=== PATIENT | female | born 1995 | race Caucasian/White ===

== ENCOUNTER 2016-08-14 18:41 | Emergency (ER) | payer OTHER ==
[2016-08-14] MEDS ORDERED: KETOROLAC 60 MG/2 ML VIAL IM STA (21:08)
[2016-08-14] MEDS ORDERED: HYDROcod/ACET 5/325 Prepack 6 PO ONE ×2 (21:08→21:10)
[2016-08-14] MEDS ORDERED: KETOROLAC 60 MG/2 ML VIAL ONE (21:10)
== END 2016-08-14 21:31 | disposition home or self-care (01) ==
DX: N12 Tubulo-interstitial nephritis, not specified as acute or chronic (principal)

== ENCOUNTER 2016-12-19 19:48 | Emergency (ER) | payer OTHER ==
[2016-12-19 20:13] LABS: BILIRUBIN,URINE NEGATIVE (NEGATIVE)
[2016-12-19 20:15] LABS: HCG UR QUAL NEGATIVE; UA w/ MICROSCOPIC CHARGE YES
[2016-12-19 20:27] LABS: UR CULTURE IF IND NOT INDICATED
--- NOTE | 2016-12-19 20:27 | ED Physician Documentation ---
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 She started to feel more dizzy and was hyperventilating and her left arm was tingling. She went down to the ground but did not fully syncopized. There is no injury. No associated chest pain or trouble breathing. No recent travel, leg pain or pedal edema. She does take control. Review of Systems Constitutional: denies: Fever, Chills Nose: denies: Rhinorrhea / runny nose, Congestion Throat: denies: Dental pain / toothache, Sore throat Cardiac: denies: Chest pain / pressure, Palpitations Respiratory: denies: Dyspnea, Cough PD PAST MEDICAL HISTORY - Past Medical History Past Medical History: Yes : Other Other Past Medical History: pyelonephritis - Past Surgical History Past Surgical History: Yes - Present Medications Home Medications: Ambulatory Orders Medication Instructions Recorded Confirmed Norethindrone AC-Eth Estradiol 1 tab PO DAILY 08/14/16 12/19/16 [Loestrin 21 1-20 Tablet] Nitrofurantoin Monohyd/M-Cryst 1 tab PO BID 5 Days 12/19/16 [Macrobid 100 mg Capsule] - Allergies Allergies/Adverse Reactions: Allergies Allergy/AdvReac Type Severity Reaction Status Date / Time No Known Drug Allergies Allergy Verified 12/19/16 19:54 - Social History Does the pt smoke?: No Smoking Status: Never smoker Does the pt drink ETOH?: No Does the pt have substance abuse?: No - Immunizations Immunizations are current?: Yes - POLST Patient has POLST: No PD ED PE NORMAL - Vitals Vital signs reviewed: Yes - General General: Alert and oriented X 3, No acute distress - HEENT HEENT: PERRL, EOMI - Neck Neck: Supple, no meningeal sign, No bony TTP - Cardiac Cardiac: RRR, No murmur - Respiratory Respiratory: No respiratory distress, Clear bilaterally - Abdomen Abdomen: Non tender - Extremities Extremities: No edema, No calf tenderness / cord - Neuro Neuro: Alert and oriented X 3, Normal speech - Psych Psych: Normal mood, Normal affect Results - Vitals Vitals: Vital Signs - 24 hr 08/07/17 19:53 Temperature 36.1 C L Heart Rate 58 L Respiratory 16 Rate Blood Pressure 120/77 O2 Saturation 100 Oxygen O2 Source Room air - EKG (time done) 2036 Rate: Rate (enter#) (55) Rhythm: NSR [place]: Normal Intervals: Normal [place] QRS: Normal Ischemia: Normal ST segments Computer interpretation: Agree with computer - Labs Labs: Laboratory Tests 12/19/16 12/19/16 12/19/16 20:05 20:35 20:35 WBC 9.0 RBC 4.40 Hgb 13.3 Hct 39.2 MCV 89.2 MCH 30.3 MCHC 34.0 RDW 12.4 Plt Count 226 MPV 8.6 Neut # 4.2 Lymph # 3.8 H [place] # 0.6 Eos # 0.2 Baso # 0.1 Absolute Nucleated RBC 0.00 Nucleated RBCs 0.0 D-Dimer < 200.0 L Sodium Potassium Chloride Carbon Dioxide Anion Gap BUN Creatinine Estimated GFR (MDRD) Glucose Calcium Total Bilirubin AST ALT Alkaline Phosphatase Total Protein Albumin Globulin Albumin/Globulin Ratio Lipase Urine Color YELLOW Urine Clarity HAZY Urine pH 8.0 H Ur Specific [place] 1.010 Urine Protein NEGATIVE Urine Glucose (UA) NEGATIVE Urine Ketones NEGATIVE Urine Occult Blood NEGATIVE Urine Nitrite NEGATIVE Urine Bilirubin NEGATIVE Urine Urobilinogen 0.2 (NORMAL) Ur Leukocyte Esterase TRACE H Urine RBC 0-5 Urine WBC 6-10 H Ur Epithelial Cells See Comments Below Ur Squamous Epith Cells MANY Squamous H Urine Bacteria Moderate H Ur Microscopic Review INDICATED Urine Culture Comments NOT INDICATED Urine HCG, Qual NEGATIVE 12/19/16 20:35 WBC RBC Hgb Hct MCV MCH MCHC RDW Plt Count MPV Neut # Lymph # [place] # Eos # Baso # Absolute Nucleated RBC Nucleated RBCs D-Dimer Sodium 138 Potassium 3.3 L Chloride 105 Carbon Dioxide 27 Anion Gap 6.0 BUN 11 Creatinine 0.8 Estimated GFR (MDRD) 91 Glucose 73 Calcium 8.5 Total Bilirubin 0.4 AST 29 ALT 30 Alkaline Phosphatase 43 Total Protein 6.7 Albumin 3.8 Globulin 2.9 Albumin/Globulin Ratio 1.3 Lipase 34 Urine Color Urine Clarity Urine pH Ur Specific [place] Urine Protein Urine Glucose (UA) Urine Ketones Urine Occult Blood Urine Nitrite Urine Bilirubin Urine Urobilinogen Ur Leukocyte Esterase Urine RBC Urine WBC Ur Epithelial Cells Ur Squamous Epith Cells Urine Bacteria Ur Microscopic Review Urine Culture Comments Urine HCG, Qual PD MEDICAL DECISION MAKING - ED course ED course: 21-year-old woman with presyncopal episode with some panicky symptoms. Feeling better now. She does have evidence of UTI, PE is considered given that she is on control but d-dimer is negative. EKG normal. Departure - Departure Disposition: Home, Self Care Clinical Impression: Pre-syncope Condition: Good Record reviewed to determine appropriate education?: Yes Instructions: ED Near Syncope Unkn Prescriptions: Nitrofurantoin Monohyd/M-Cryst [Macrobid 100 mg Capsule] 1 tab PO BID 5 Days Comments: Call your doctor to arrange a follow-up appointment, make the next available appointment. In the interim, return anytime if worse or if new symptoms develop.
[2016-12-19 20:51] LABS: BASOPHILS # (AUTO) 0.1 10^3/uL (0.0-0.1); BASOPHILS % (AUTO) 1.2 %; EOSINOPHILS # (AUTO) 0.2 10^3/uL (0.0-0.7); EOSINOPHILS % (AUTO) 1.7 %; HCT - HEMATOCRIT 39.2 % (37.0-47.0); HGB - HEMOGLOBIN 13.3 g/dL (12.0-16.0); LYMPHOCYTES # (AUTO) 3.8 10^3/uL (1.5-3.5); LYMPHOCYTES % (AUTO) 42.9 %; MEAN CORPUSCULAR HEMOGLOBIN 30.3 pg (27.0-31.0); MEAN CORPUSCULAR VOLUME 89.2 fL (81.0-99.0); MEAN PLATELET VOLUME 8.6 fL (7.9-10.8); MONOCYTES # (AUTO) 0.6 10^3/uL (0.0-1.0); MONOCYTES % (AUTO) 7.2 %; NEUTROPHILS # (AUTO) 4.2 10^3/uL (1.5-6.6); RED CELL DISTRIBUTION WIDTH 12.4 % (12.0-15.0)
[2016-12-19 21:01] LABS: ALBUMIN/GLOBULIN RATIO 1.3 (1.0-2.2); BILIRUBIN,TOTAL 0.4 mg/dL (0.2-1.0); CALCIUM 8.5 mg/dL (8.5-10.3); CREATININE 0.8 mg/dL (0.4-1.0); POTASSIUM 3.3 mmol/L (3.5-5.0); TOTAL PROTEIN 6.7 g/dL (6.7-8.2)
[2016-12-19] MEDS ORDERED: NITROFURANTOIN MACRO 100 MG CAPSULE PO STA (21:23)
[2016-12-19] MEDS ORDERED: NITROFURANTOIN MACRO 100 MG CAPSULE PO ONE (21:32)
[2016-12-19 21:36] VITALS: BP 128/84
== END 2016-12-19 21:42 | disposition home or self-care (01) ==
LOC: EDUNIT# → ED 19:48
DX: R55 Syncope and collapse (principal)
CPT/HCPCS: 36415; 80053; 81001; 81025; 83690; 85025; 85379; 93005; 99283; 99284; A9270; 81003; 87086

== ENCOUNTER 2017-03-29 20:12 | Emergency (ER) | payer OTHER ==
[2017-03-29 20:17] VITALS: BP 122/74
--- NOTE | 2017-03-29 22:50 | ED Physician Documentation ---
History of Present Illness - Stated complaint Stated Complaint: CONSTIPATION - Chief complaint Chief Complaint: Abd Pain - Additonal information Additional information: hx from pt 21 fmeale cosntipation for about 5 days feels bloated and crmaling and only passing small amt of stool tried stool softeners and fiber pills s relief no priro surgery no NV denies preg Review of Systems Constitutional: denies: Fever Cardiac: denies: Chest pain / pressure Respiratory: denies: Dyspnea GI: reports: Abdominal Pain, Constipation. denies: Nausea, Vomiting : denies: Now EGA (denies) PD PAST MEDICAL HISTORY - Past Medical History Past Medical History: No - Present Medications Home Medications: Ambulatory Orders Medication Instructions Recorded Confirmed Norethindrone AC-Eth Estradiol 1 tab PO DAILY 08/14/16 03/29/17 [Loestrin 21 1-20 Tablet] Peg 3350/Na Sulf,Bicarb,Cl/KCl 4,000 ml PO ONCE #1 bottle 03/29/17 [Golytely] - Allergies Allergies/Adverse Reactions: Allergies Allergy/AdvReac Type Severity Reaction Status Date / Time No Known Drug Allergies Allergy Verified 03/29/17 20:17 - Social History Does the pt smoke?: No Smoking Status: Never smoker PD ED PE NORMAL - Vitals Vital signs reviewed: Yes - Cardiac Cardiac: RRR - Respiratory Respiratory: No respiratory distress, Clear bilaterally - Abdomen Abdomen: Soft, Non tender - Rectal Rectal: Other (no mass, no impaction) Results - Vitals Vitals: Vital Signs - 24 hr 03/29/17 20:14 Temperature 36 C L Heart Rate 50 L Respiratory 20 Rate Blood Pressure 122/74 O2 Saturation 100 Oxygen O2 Source Room air Departure - Departure Disposition: 01 Home, Self Care Clinical Impression: Constipation Qualifiers: Constipation type: unspecified constipation type Qualified Code(s): K59.00 - Constipation, unspecified Condition: Good Instructions: ED Constipation Follow-Up: SWAPNIL Velez [Provider Group] (if you continue to have GI issues you may need a colonoscopy) Prescriptions: Peg 3350/Na Sulf,Bicarb,Cl/KCl [Golytely] 4,000 ml PO ONCE #1 bottle Comments: When you get home 1) use the enema as I explained 2) drink the bottle of magnesium citrate 3) if you have not started passing stool by the morning, go to the pharmacy and get the GoLytely and drink several large sips every 10 minutes until you are just pooping clear water 4) if that does not result in a BM or if you feels worse, come back to the ER Forms: Activity restrictions
[2017-03-29] MEDS ORDERED: MAGNESIUM CITRATE 296 ML BOTTLE ONE (22:56)
[2017-03-29] MEDS: MAGNESIUM CITRATE 296 ML BOTTLE PO STA (22:58)
== END 2017-03-29 23:00 | disposition home or self-care (01) ==
LOC: ED 20:12
DX: K59.00 Constipation, unspecified (principal)
CPT/HCPCS: 99283

== ENCOUNTER 2017-05-05 15:45 | Emergency (ER) | payer OTHER ==
[2017-05-05 15:50] VITALS: BP 126/79
--- NOTE | 2017-05-05 15:57 | ED Physician Documentation ---
PD HPI FEMALE - Stated complaint Stated Complaint: UTI - Chief complaint Chief Complaint: UTI - History obtained from History obtained from: Patient - History of Present Illness Timing - onset: Yesterday (into today) Timing - duration: Days (1-2) Timing - details: Gradual onset, Waxing and waning Associated symptoms: Pelvic pain (some cramping lower abd pain - feeling similar to UTIs she has had in the past.), Urinary frequency. No: Fever, Vaginal bleeding, Vaginal discharge, Genital sore/lesion, Hematuria Contributing factors: Sexually active. No: , IUD, Exposed to STD Similar symptoms before: Diagnosis (UTIs often in the past, with last one about 2 weeks ago treated with cranberry pills.) Review of Systems Constitutional: denies: Fever, Chills Nose: denies: Rhinorrhea / runny nose, Congestion Throat: denies: Sore throat : reports: Frequency. denies: Discharge Skin: denies: Rash PD PAST MEDICAL HISTORY - Past Medical History Past Medical History: Yes Endocrine/Autoimmune: None : Kidney stones, Other (frequent UTIs) - Past Surgical History Past Surgical History: Yes - Present Medications Home Medications: Ambulatory Orders Medication Instructions Recorded Confirmed Norethindrone AC-Eth Estradiol 1 tab PO DAILY 08/14/16 05/05/17 [Loestrin 21 1-20 Tablet] - Allergies Allergies/Adverse Reactions: Allergies Allergy/AdvReac Type Severity Reaction Status Date / Time No Known Drug Allergies Allergy Verified 05/05/17 15:50 - Social History Does the pt smoke?: No Smoking Status: Never smoker Does the pt drink ETOH?: No Does the pt have substance abuse?: No - Immunizations Immunizations are current?: Yes - POLST Patient has POLST: No PD ED PE NORMAL - Vitals Vital signs reviewed: Yes - General General: Alert and oriented X 3, No acute distress, Well developed/nourished - Abdomen Abdomen: Soft, Non tender - Female Female : Pt declined - Rectal Rectal: Deferred - Back Back: No CVA TTP - Derm Derm: Normal color, No rash Results - Vitals Vitals: Vital Signs - 24 hr 05/05/17 15:47 Temperature 36.3 C L Heart Rate 55 L Respiratory 18 Rate Blood Pressure 126/79 O2 Saturation 97 Oxygen O2 Source Room air - Labs Labs: Laboratory Tests 05/04/17 05/05/17 15:53 15:53 Urine Color YELLOW Urine Clarity CLEAR Urine pH 6.5 Ur Specific [place] 1.010 1.010 Urine Protein NEGATIVE Urine Glucose (UA) NEGATIVE Urine Ketones NEGATIVE Urine Occult Blood NEGATIVE Urine Nitrite NEGATIVE Urine Bilirubin NEGATIVE Urine Urobilinogen 0.2 (NORMAL) Ur Leukocyte Esterase NEGATIVE Ur Microscopic Review NOT INDICATED Urine Culture Comments NOT INDICATED Urine HCG, Qual NEGATIVE PD MEDICAL DECISION MAKING - ED course Complexity details: reviewed results, considered differential (urine is very normal. Consider some interstitial cystitis. Would also consider vaginitis as cause of symptoms and suggested pelvic exam and patient declined. ), d/w patient Departure - Departure Disposition: 01 Home, Self Care Clinical Impression: Dysuria Condition: Stable Record reviewed to determine appropriate education?: Yes Instructions: ED Dysuria Uncertain Cause Follow-Up: SWAPNIL Velez [Provider Group] Comments: Drink lots of fluids. Tylenol if needed for discomfort. Your urine test looks normal right now so no signs of bladder infection. This could be also from or instead from a vaginitis and can be evaluated with a pelvic exam. That can be done here or follow up with PCP if you have persistence of some discomfort or odor after next few days. Recheck if worsening symptoms. Discharge Date/Time: 05/05/17 16:28
[2017-05-05 16:05] LABS: BILIRUBIN,URINE NEGATIVE (NEGATIVE); PH,URINE 6.5 PH (5.0-7.5)
[2017-05-05 16:14] LABS: UA CHARGE (STRIP ONLY) YES; UR CULTURE IF IND NOT INDICATED
[2017-05-05 16:31] LABS: HCG UR QUAL NEGATIVE
== END 2017-05-05 16:28 | disposition home or self-care (01) ==
LOC: ED 15:45
DX: R30.0 Dysuria (principal); Z87.440 Personal history of urinary (tract) infections
CPT/HCPCS: 81001; 81003; 81025; 87086; 99282

== ENCOUNTER 2017-07-24 09:49 | Emergency (ER) | payer OTHER ==
[2017-07-24 10:17] LABS: BASOPHILS # (AUTO) 0.1 10^3/uL (0.0-0.1); BASOPHILS % (AUTO) 0.6 %; EOSINOPHILS # (AUTO) 1.6 10^3/uL (0.0-0.7); EOSINOPHILS % (AUTO) 12.1 %; HGB - HEMOGLOBIN 14.2 g/dL (12.0-16.0); LYMPHOCYTES # (AUTO) 2.5 10^3/uL (1.5-3.5); LYMPHOCYTES % (AUTO) 19.1 %; MEAN CORPUSCULAR HEMOGLOBIN 30.3 pg (27.0-31.0); MEAN CORPUSCULAR VOLUME 89.1 fL (81.0-99.0); MEAN PLATELET VOLUME 7.5 fL (7.9-10.8); MONOCYTES # (AUTO) 0.6 10^3/uL (0.0-1.0); MONOCYTES % (AUTO) 4.8 %; NEUTROPHILS # (AUTO) 8.4 10^3/uL (1.5-6.6); NEUTROPHILS % (AUTO) 63.4 %; PLT - PLATELET COUNT 288 10^3/uL (130-450); RED BLOOD COUNT 4.68 10^6/uL (4.20-5.40); RED CELL DISTRIBUTION WIDTH 14.1 % (12.0-15.0); WHITE BLOOD COUNT 13.2 x10^3/uL (4.8-10.8)
[2017-07-24 10:18] LABS: BILIRUBIN,URINE NEGATIVE (NEGATIVE); GLUCOSE, URINE (UA) NEGATIVE (NEGATIVE); KETONES,URINE (UA) NEGATIVE (NEGATIVE); LEUKOCYTE ESTERASE, URINE NEGATIVE (NEGATIVE); NITRITE,URINE NEGATIVE (NEGATIVE); OCCULT BLOOD,URINE NEGATIVE (NEGATIVE); PROTEIN,URINE NEGATIVE (NEGATIVE); UROBILINOGEN,URINE 0.2 (NORMAL) E.U./dL (NORMAL)
[2017-07-24 10:21] LABS: CLARITY,URINE CLEAR (CLEAR); HCG UR QUAL NEGATIVE
[2017-07-24 10:30] LABS: ALBUMIN 3.8 g/dL (3.2-5.5); ALBUMIN/GLOBULIN RATIO 1.3 (1.0-2.2); BILIRUBIN,TOTAL 0.4 mg/dL (0.2-1.0); CALCIUM 9.2 mg/dL (8.5-10.3); CREATININE 0.8 mg/dL (0.4-1.0); TOTAL PROTEIN 6.8 g/dL (6.7-8.2)
[2017-07-24 10:44] LABS: RBC MORPHOLOGY (MULTIPLE) 1+ ANISOCYTOSIS (NORMAL)
[2017-07-24] MEDS ORDERED: ONDANSETRON 4 MG/2 ML VIAL IVP STA (10:58)
[2017-07-24] MEDS ORDERED: KETOROLAC 60 MG/2 ML VIAL IVP STA (10:58)
[2017-07-24] MEDS ORDERED: SODIUM CHLORIDE 0.9% 1,000 ML IV ONE (10:58)
--- NOTE | 2017-07-24 10:58 | ED Physician Documentation ---
History of Present Illness - Stated complaint Stated Complaint: ABD PX - Chief complaint Chief Complaint: Abd Pain - Additonal information Additional information: hx from pt 21 female upper abd pain bloating nausea after eating for a week denies preg no fever no prior abd surgery Review of Systems Constitutional: denies: Fever Cardiac: denies: Chest pain / pressure Respiratory: denies: Dyspnea, Cough GI: reports: Abdominal Pain, Nausea, Vomiting : denies: Now EGA Musculoskeletal: denies: Back pain Endocrine: denies: Easy bruising / bleeding Immunocompromised: denies: Immunocompromised PD PAST MEDICAL HISTORY - Past Medical History Endocrine/Autoimmune: None : Kidney stones, Other - Past Surgical History Past Surgical History: Yes - Present Medications Home Medications: Ambulatory Orders Medication Instructions Recorded Confirmed Norethindrone AC-Eth Estradiol 1 tab PO DAILY 08/14/16 05/05/17 [Loestrin 21 1-20 Tablet] Ondansetron Odt [Zofran] 4 mg TL Q6H PRN #10 tablet 07/24/17 Sucralfate 1 gm PO ACHS #120 tablet 07/24/17 raNITIdine [Zantac] 150 mg PO BID #60 tablet 07/24/17 - Allergies Allergies/Adverse Reactions: Allergies Allergy/AdvReac Type Severity Reaction Status Date / Time No Known Drug Allergies Allergy Verified 05/05/17 15:50 - Social History Does the pt smoke?: No Smoking Status: Never smoker Does the pt drink ETOH?: No Does the pt have substance abuse?: No - Immunizations Immunizations are current?: Yes - POLST Patient has POLST: No PD ED PE NORMAL - Vitals Vital signs reviewed: Yes - General General: Alert and oriented X 3 - HEENT HEENT: PERRL - Neck Neck: Supple, no meningeal sign - Cardiac Cardiac: RRR - Respiratory Respiratory: No respiratory distress, Clear bilaterally - Abdomen Abdomen: Soft, Other (TTP epigastric region + murphys) - Derm Derm: Normal color - Neuro Neuro: Alert and oriented X 3 Results - Vitals Vitals: Vital Signs - 24 hr 07/24/17 07/24/17 09:57 12:19 Temperature 36.8 C Heart Rate 84 80 Respiratory 16 16 Rate Blood Pressure 142/77 H 133/79 H O2 Saturation 99 98 Oxygen O2 Source Room air - Labs Labs: Laboratory Tests 07/24/17 07/24/1707/24/18 10:00 10:12 10:12 WBC 13.2 H RBC 4.68 Hgb 14.2 Hct 41.7 MCV 89.1 MCH 30.3 MCHC 34.0 RDW 14.1 Plt Count 288 MPV 7.5 L Neut # 8.4 H Lymph # 2.5 [place] # 0.6 Eos # 1.6 H Baso # 0.1 Absolute Nucleated RBC 0.00 Nucleated RBC % 0.0 Manual Slide Review Indicated RBC Morph Micro Appear 1+ ANISOCYTOSIS Sodium 137 Potassium 4.1 Chloride 100 L Carbon Dioxide 28 Anion Gap 9.0 BUN 16 Creatinine 0.8 Estimated GFR (MDRD) 91 Glucose 87 Calcium 9.2 Total Bilirubin 0.4 AST 27 ALT 24 Alkaline Phosphatase 37 L Total Protein 6.8 Albumin 3.8 Globulin 3.0 Albumin/Globulin Ratio 1.3 Lipase 18 L Urine Color YELLOW Urine Clarity CLEAR Urine pH 7.0 Ur Specific [place] 1.010 Urine Protein NEGATIVE Urine Glucose (UA) NEGATIVE Urine Ketones NEGATIVE Urine Occult Blood NEGATIVE Urine Nitrite NEGATIVE Urine Bilirubin NEGATIVE Urine Urobilinogen 0.2 (NORMAL) Ur Leukocyte Esterase NEGATIVE Ur Microscopic Review NOT INDICATED Urine Culture Comments NOT INDICATED Urine HCG, Qual NEGATIVE - Rads (name of study) abd sono Radiology: See rad report (per rad read, neg RUQ sono - no gallstones wall thicening or pericholecystic fluid, nl ducts) Departure - Departure Disposition: 01 Home, Self Care Clinical Impression: Abdominal pain Qualifiers: Abdominal location: epigastric Qualified Code(s): R10.13 - Epigastric pain Condition: Good Instructions: Abdominal Pain Follow-Up: FELIX DONALDSON [Primary Care Provider] - Hammad Gallo MD [Provider Admit Priv/Credential] - Prescriptions: Ondansetron Odt [Zofran] 4 mg TL Q6H PRN #10 tablet PRN Reason: Nausea / Vomiting raNITIdine [Zantac] 150 mg PO BID #60 tablet Sucralfate 1 gm PO ACHS #120 tablet Comments: Your pain was suggestive of gallstones but surprisingly the ultrasound was fine Also your liver tests were fine It is possiblt to have gallbladder disease without stone - you may need to get a test called a HIDA scan for further gallbladder evaluation. or the pain could be due to something else such as gastritis or an ulcer. Given the reassuring work up in the ER, I think it is safe for you to go home for now with medications to ease the symptoms But I have referred you to our surgical clinic for further testing such as endoscopy (a scope of your stomac) and perhaps the HIDA scan. Avoid spicy and fatty foods. Return if significantly worse Forms: Activity restrictions
[2017-07-24 12:20] VITALS: BP 133/79
--- NOTE | 2017-07-24 12:28 | Ultrasound Report ---
LIMITED RIGHT UPPER QUADRANT ABDOMINAL ULTRASOUND: 07/24/2017 COMPARISON: None. INDICATION: Upper abdominal pain. Please evaluate gallbladder. TECHNIQUE: Sonographic evaluation of the right upper quadrant was performed. FINDINGS: The liver appears normal in size, contour and echogenicity. No masses. The gallbladder is contracted, but appears otherwise normal without gallstones, wall thickening or pericholecystic fluid. The common duct is nondilated. Liver is 16.5 cm. Common duct is 3 mm. The right kidney is grossly unremarkable. The pancreas is not well visualized. IMPRESSION: ESSENTIALLY NEGATIVE RIGHT UPPER QUADRANT ULTRASOUND. TD: 07/24/2017 12:27 MTDVictorina
== END 2017-07-24 14:19 | disposition home or self-care (01) ==
LOC: ED 09:49
DX: R10.13 Epigastric pain (principal)
CPT/HCPCS: 36415; 76705; 80053; 81001; 81003; 81025; 83690; 85025; 87086; 96361; 96374; 96375; 99283

== ENCOUNTER 2017-12-25 19:46 | Emergency (ER) | payer OTHER ==
[2017-12-25 20:12] LABS: BASOPHILS # (AUTO) 0.1 10^3/uL (0.0-0.1); BASOPHILS % (AUTO) 0.8 %; EOSINOPHILS # (AUTO) 0.1 10^3/uL (0.0-0.7); EOSINOPHILS % (AUTO) 1.4 %; HGB - HEMOGLOBIN 13.1 g/dL (12.0-16.0); LYMPHOCYTES # (AUTO) 2.4 10^3/uL (1.5-3.5); LYMPHOCYTES % (AUTO) 32.6 %; MEAN CORPUSCULAR HGB CONC 33.6 g/dL (32.0-36.0); MEAN CORPUSCULAR VOLUME 89.2 fL (81.0-99.0); MEAN PLATELET VOLUME 7.9 fL (7.9-10.8); MONOCYTES # (AUTO) 0.5 10^3/uL (0.0-1.0); MONOCYTES % (AUTO) 7.3 %; NEUTROPHILS # (AUTO) 4.2 10^3/uL (1.5-6.6); NEUTROPHILS % (AUTO) 57.9 %; PLT - PLATELET COUNT 313 10^3/uL (130-450); RED BLOOD COUNT 4.36 10^6/uL (4.20-5.40); RED CELL DISTRIBUTION WIDTH 13.5 % (12.0-15.0); WHITE BLOOD COUNT 7.2 x10^3/uL (4.8-10.8)
[2017-12-25 20:24] LABS: ALBUMIN 3.8 g/dL (3.2-5.5); ALBUMIN/GLOBULIN RATIO 1.2 (1.0-2.2); BILIRUBIN,TOTAL 0.5 mg/dL (0.2-1.0); CALCIUM 8.6 mg/dL (8.5-10.3); CREATININE 0.8 mg/dL (0.4-1.0); TOTAL PROTEIN 7.1 g/dL (6.7-8.2)
[2017-12-25 21:06] LABS: BILIRUBIN,URINE NEGATIVE (NEGATIVE); GLUCOSE, URINE (UA) NEGATIVE (NEGATIVE); KETONES,URINE (UA) NEGATIVE (NEGATIVE); LEUKOCYTE ESTERASE, URINE NEGATIVE (NEGATIVE); NITRITE,URINE NEGATIVE (NEGATIVE); OCCULT BLOOD,URINE NEGATIVE (NEGATIVE); PROTEIN,URINE NEGATIVE (NEGATIVE); UROBILINOGEN,URINE 0.2 (NORMAL) E.U./dL (NORMAL)
[2017-12-25 21:09] LABS: CLARITY,URINE CLEAR (CLEAR); HCG UR QUAL NEGATIVE
[2017-12-25] MEDS ORDERED: SODIUM CHLORIDE 0.9% 1,000 ML IV ONE (21:16)
[2017-12-25] MEDS ORDERED: KETOROLAC 60 MG/2 ML VIAL IVP STA (21:16)
[2017-12-25] MEDS ORDERED: diphenhydrAMINE INJ 50 MG/ML VIAL IVP STA (21:16)
[2017-12-25] MEDS ORDERED: FAMOTIDINE 20 MG in SODIUM CHLORIDE 0.9% 50 ML IV ONE (21:16)
[2017-12-25] MEDS ORDERED: METOCLOPRAMIDE 10 MG/2 ML VIAL IVP STA (21:16)
--- NOTE | 2017-12-25 21:37 | ED Physician Documentation ---
History of Present Illness - Stated complaint Stated Complaint: ABD PX - Chief complaint Chief Complaint: Abd Pain - Additonal information Additional information: 22-year-old female presents the emergency department with generalized upper abdominal pain which started this evening after eating a granola bar. The patient reports having a history of recurrent GI issues secondary to a gluten allergy. The patient accidentally ate gluten today and reports upper abdominal cramping and pain. The patient denies nausea, vomiting, diarrhea or blood in her stools. The patient also has a history of recurrent biliary colic. The patient denies lower abdominal pain. Symptoms are described as moderate. No radiation of the symptoms. No other associated symptoms. No relieving factors Review of Systems Constitutional: denies: Fever, Chills Nose: denies: Rhinorrhea / runny nose Throat: denies: Sore throat Cardiac: denies: Chest pain / pressure Respiratory: denies: Cough GI: reports: Abdominal Pain. denies: Vomiting, Diarrhea, Bloody / black stool : denies: Dysuria Skin: denies: Rash Musculoskeletal: denies: Neck pain Neurologic: denies: Generalized weakness Immunocompromised: denies: Chemotherapy PD PAST MEDICAL HISTORY - Past Medical History Past Medical History: Yes Cardiovascular: None Respiratory: None Neuro: None Endocrine/Autoimmune: None GI: Other [employer]: None : Kidney stones, Other HEENT: None Psych: None Musculoskeletal: None Derm: None - Past Surgical History Past Surgical History: Yes - Present Medications Home Medications: Ambulatory Orders Medication Instructions Recorded Confirmed Norethindrone AC-Eth Estradiol 1 tab PO DAILY 08/14/16 05/05/17 [Loestrin 21 1-20 Tablet] - Allergies Allergies/Adverse Reactions: Allergies Allergy/AdvReac Type Severity Reaction Status Date / Time No Known Drug Allergies Allergy Verified 12/25/17 19:56 - Social History Does the pt smoke?: No Smoking Status: Never smoker Does the pt drink ETOH?: No Does the pt have substance abuse?: No - Immunizations Immunizations are current?: Yes - POLST Patient has POLST: No PD ED PE NORMAL - General General: Alert and oriented X 3, No acute distress - HEENT HEENT: Atraumatic, PERRL, EOMI, Ears normal - Neck Neck: Supple, no meningeal sign - Cardiac Cardiac: RRR, Strong equal pulses - Respiratory Respiratory: No respiratory distress, Clear bilaterally - Abdomen Abdomen: Soft, Non distended. No: Non tender (The patient has tenderness to palpation in her upper abdomen, there is no rebound or peritoneal signs) - Back Back: No CVA TTP - Derm Derm: Normal color - Extremities Extremities: No deformity - Neuro Neuro: Alert and oriented X 3, Normal speech - Psych Psych: Normal affect Results - Vitals Vitals: Vital Signs - 24 hr 12/25/17 12/25/17 12/25/17 19:54 22:08 22:38 Temperature 36.7 C Heart Rate 94 90 Respiratory 20 16 16 Rate Blood Pressure 136/78 H 124/62 O2 Saturation 98 100 Oxygen O2 Source Room air - Labs Labs: Laboratory Tests 12/25/17 12/25/17 12/25/17 20:05 20:05 20:50 WBC 7.2 RBC 4.36 Hgb 13.1 Hct 38.9 MCV 89.2 MCH 30.0 MCHC 33.6 RDW 13.5 Plt Count 313 MPV 7.9 Neut # (Auto) 4.2 Lymph # (Auto) 2.4 [place] # (Auto) 0.5 Eos # (Auto) 0.1 Baso # (Auto) 0.1 Absolute Nucleated RBC 0.00 Nucleated RBC % 0.0 Sodium 139 Potassium 3.6 Chloride 105 Carbon Dioxide 24 Anion Gap 10.0 BUN 28 H Creatinine 0.8 Estimated GFR (MDRD) 91 Glucose 83 Calcium 8.6 Total Bilirubin 0.5 AST 27 ALT 23 Alkaline Phosphatase 46 Total Protein 7.1 Albumin 3.8 Globulin 3.3 Albumin/Globulin Ratio 1.2 Lipase 35 Urine Color YELLOW Urine Clarity CLEAR Urine pH 6.0 Ur Specific [place] 1.015 Urine Protein NEGATIVE Urine Glucose (UA) NEGATIVE Urine Ketones NEGATIVE Urine Occult Blood NEGATIVE Urine Nitrite NEGATIVE Urine Bilirubin NEGATIVE Urine Urobilinogen 0.2 (NORMAL) Ur Leukocyte Esterase NEGATIVE Ur Microscopic Review NOT INDICATED Urine Culture Comments NOT INDICATED Urine HCG, Qual NEGATIVE - Rads (name of study) Ultrasound abdomen Radiology: Final report received PD MEDICAL DECISION MAKING - ED course ED course: On reevaluation the patient is resting comfortably and appears to be in no significant distress. The patient still has no lower abdominal pain. The patient's workup currently shows No acute abnormality that would necessitate admission to the hospital or acute surgical consultation. Presently the patient has no lower abdominal tenderness to suggest appendicitis or ovarian torsion. The patient's symptoms seem to be secondary to her gluten allergy and the fact that she ate gluten. The patient appears appropriate for discharge and reevaluation as outpatient. I discussed warning signs and recommended returning to the emergency department immediately for any worsening or concerns - Sepsis Event Vital Signs: Vital Signs - 24 hr 12/25/17 12/25/17 12/25/17 19:54 22:08 22:38 Temperature 36.7 C Heart Rate 94 90 Respiratory 20 16 16 Rate Blood Pressure 136/78 H 124/62 O2 Saturation 98 100 Oxygen O2 Source Room air Departure - Departure Disposition: 01 Home, Self Care Clinical Impression: Abdominal pain Qualifiers: Abdominal location: epigastric Qualified Code(s): R10.13 - Epigastric pain Condition: Good Instructions: Abdominal Pain, ED Abdominal Pain Appendx Poss, Diet Gluten Free Celiac Follow-Up: IGOR AZUL [Primary Care Provider] - Within 1 week Comments: Please return to the emergency department for worsening symptoms or any concerns
--- NOTE | 2017-12-25 23:56 | Ultrasound Report ---
Procedure Date: 12/25/2017 Accession Number: [id number] / [id number] Procedure: US - Abdomen Limited CPT Code: FULL RESULT: EXAM: ABDOMEN ULTRASOUND LIMITED, RUQ EXAM DATE: 12/25/2017 11:00 PM. CLINICAL HISTORY: Epigastric pain. COMPARISON: ABDOMEN LIMITED 07/24/2017 11:02 AM. TECHNIQUE: Real-time scanning was performed with static images obtained. FINDINGS: Liver: Normal in size and echotexture. 14.8 cm. Main portal vein flow: Hepatopetal. Gallbladder: Normal. No stones, wall thickening, or sonographic Oro's sign. Biliary System: CBD measures 2 mm. No intrahepatic or extrahepatic ductal dilatation. Other: Right kidney measures 10.1 cm and appears normal. Lower pole is partially obscured by bowel gas. Pancreas is not well seen due to bowel gas. Inferior vena cava is patent where seen. IMPRESSION: 1. No cholelithiasis or cholecystitis seen. 2. No biliary dilatation. RADIA
[2017-12-26 00:21] VITALS: BP 120/60
== END 2017-12-26 00:20 | disposition home or self-care (01) ==
LOC: ED 19:46
DX: R10.13 Epigastric pain (principal)
CPT/HCPCS: 36415; 76705; 80053; 81003; 81025; 83690; 85025; 96361; 96365; 96375; 99283; J1200; J2765; J7040; 81001; 87086

== ENCOUNTER 2018-01-14 19:44 | Emergency (ER) | payer OTHER ==
[2018-01-14] MEDS ORDERED: KETOROLAC 60 MG/2 ML VIAL IVP STA (20:23)
[2018-01-14] MEDS ORDERED: ONDANSETRON 4 MG/2 ML VIAL IVP STA ×2 (20:23→21:14)
[2018-01-14] MEDS ORDERED: SODIUM CHLORIDE 0.9% 1,000 ML IV STA (20:23)
--- NOTE | 2018-01-14 20:26 | ED Physician Documentation ---
PD HPI ABD PAIN - Stated complaint Stated Complaint: ABD PX/VOM - Chief complaint Chief Complaint: Abd Pain - History obtained from History obtained from: Patient - History of Present Illness Timing - onset: Last night Timing - details: Gradual onset, Constant, Waxing and waning Pain level now: 1 (reports 05/24, although she appears to be in visible painful discomfort) Quality: Sharp, Stabbing, Pain Location: LUQ, LLQ Radiation: Other (does not radiate) Improved by: Other (nothing) Worsened by: Other (no exacerbating factors) Associated symptoms: Nausea, Vomiting. No: Fever, Diarrhea, Constipation Similar symptoms before: Has not had sx before (has had previous [facility] ED visits for abdominal pain (most recent was 12/25/17) as well as significant outpatient w /u that has included upper and lower scopes (says "ulcers" found on upper scope , hemorrhoids and "scarring" on colonoscopy). Despite this, she says tonight's pain is not the same as those previous episodes) Recently seen: Emergency Dept (a little over 2 weeks ago for abd. pain) Review of Systems Constitutional: denies: Fever, Chills, Sweats Cardiac: reports: Reviewed and negative Respiratory: reports: Reviewed and negative GI: reports: Abdominal Pain, Nausea, Vomiting. denies: Constipation, Diarrhea : denies: Dysuria, Frequency, Now [facility] PD PAST MEDICAL HISTORY - Past Medical History Cardiovascular: None Respiratory: None Neuro: None Endocrine/Autoimmune: None GI: Other [employer]: None : Kidney stones, Other HEENT: None Psych: None Musculoskeletal: None Derm: None - Past Surgical History Past Surgical History: Yes - Present Medications Home Medications: Ambulatory Orders Medication Instructions Recorded Confirmed Norethindrone AC-Eth Estradiol 1 tab PO DAILY 08/14/16 05/05/17 [Loestrin 21 1-20 Tablet] Ondansetron Odt [Zofran] 4 mg TL Q6H PRN #10 tablet 01/14/18 - Allergies Allergies/Adverse Reactions: Allergies Allergy/AdvReac Type Severity Reaction Status Date / Time gluten Allergy Cramps Verified 01/14/18 19:51 - Social History Does the pt smoke?: No Smoking Status: Never smoker Does the pt drink ETOH?: No Does the pt have substance abuse?: No - Immunizations Immunizations are current?: Yes - POLST Patient has POLST: No PD ED PE NORMAL - Vitals Vital signs reviewed: Yes - General General: Alert and oriented X 3, Well developed/nourished, Other (appears uncomfortable, shifting in bed at times as if in discomfort) - HEENT HEENT: Moist mucous membranes - Cardiac Cardiac: RRR, No murmur - Respiratory Respiratory: No respiratory distress, Clear bilaterally - Abdomen Abdomen: Normal bowel sounds, Soft, Non tender, Non distended - Back Back: No CVA TTP Results - Vitals Vitals: Vital Signs - 24 hr 01/14/18 01/14/18 19:48 21:36 Temperature 36.2 C L Heart Rate 72 53 L Respiratory 16 16 Rate Blood Pressure 115/93 H 103/61 O2 Saturation 100 99 Oxygen O2 Source Room air - Labs Labs: Laboratory Tests 01/14/18 01/14/18 01/14/18 19:58 19:58 20:28 WBC 6.6 RBC 4.88 Hgb 14.5 Hct 42.7 MCV 87.6 MCH 29.8 MCHC 34.0 RDW 13.3 Plt Count 304 MPV 7.7 L Neut # (Auto) 3.6 Lymph # (Auto) 2.3 [place] # (Auto) 0.5 Eos # (Auto) 0.1 Baso # (Auto) 0.1 Absolute Nucleated RBC 0.00 Nucleated RBC % 0.0 Sodium Potassium Chloride Carbon Dioxide Anion Gap BUN Creatinine Estimated GFR (MDRD) Glucose Calcium Total Bilirubin AST ALT Alkaline Phosphatase Total Protein Albumin Globulin Albumin/Globulin Ratio Lipase Urine Color YELLOW Urine Clarity CLEAR Urine pH 7.0 Ur Specific [place] 1.010 1.010 Urine Protein NEGATIVE Urine Glucose (UA) NEGATIVE Urine Ketones NEGATIVE Urine Occult Blood NEGATIVE Urine Nitrite NEGATIVE Urine Bilirubin NEGATIVE Urine Urobilinogen 0.2 (NORMAL) Ur Leukocyte Esterase NEGATIVE Ur Microscopic Review NOT INDICATED Urine Culture Comments NOT INDICATED Urine HCG, Qual NEGATIVE 01/14/18 20:28 WBC RBC Hgb Hct MCV MCH MCHC RDW Plt Count MPV Neut # (Auto) Lymph # (Auto) [place] # (Auto) Eos # (Auto) Baso # (Auto) Absolute Nucleated RBC Nucleated RBC % Sodium 137 Potassium 4.0 Chloride 99 L Carbon Dioxide 32 Anion Gap 6.0 BUN 17 Creatinine 0.9 Estimated GFR (MDRD) 79 L Glucose 97 Calcium 9.1 Total Bilirubin 0.8 AST 21 ALT 18 Alkaline Phosphatase 48 Total Protein 7.2 Albumin 4.0 Globulin 3.2 Albumin/Globulin Ratio 1.3 Lipase 36 Urine Color Urine Clarity Urine pH Ur Specific [place] Urine Protein Urine Glucose (UA) Urine Ketones Urine Occult Blood Urine Nitrite Urine Bilirubin Urine Urobilinogen Ur Leukocyte Esterase Ur Microscopic Review Urine Culture Comments Urine HCG, Qual PD MEDICAL DECISION MAKING - ED course Complexity details: reviewed old records, reviewed results, re-evaluated patient , considered differential, d/w patient ED course: On initial H+P, patient declines pain medications. I suggested toradol (in addition to IV fluids), as she appears to be uncomfortable, and she is agreeable to this. We also discussed "GI cocktail", which she has had before; she seems ambivalent as to its efficacy in the past, and ultimately declined this medication. Patient had relief of pain with toradol, but pain returned later in ED stay, given morphine with good pain relief. - Sepsis Event Vital Signs: Vital Signs - 24 hr 01/14/18 01/14/18 19:48 21:36 Temperature 36.2 C L Heart Rate 72 53 L Respiratory 16 16 Rate Blood Pressure 115/93 H 103/61 O2 Saturation 100 99 Oxygen O2 Source Room air Departure - Departure Disposition: 01 Home, Self Care Clinical Impression: Abdominal pain Qualifiers: Abdominal location: left upper quadrant Qualified Code(s): R10.12 - Left upper quadrant pain Condition: Good Instructions: ED Abdominal Pain Unkn Cause Follow-Up: IGOR AZUL [Primary Care Provider] - (Call to arrange for next available appointment) Prescriptions: Ondansetron Odt [Zofran] 4 mg TL Q6H PRN #10 tablet PRN Reason: Nausea / Vomiting Discharge Date/Time: 01/14/18 21:58
[2018-01-14 20:33] LABS: BASOPHILS # (AUTO) 0.1 10^3/uL (0.0-0.1); BASOPHILS % (AUTO) 0.8 %; EOSINOPHILS # (AUTO) 0.1 10^3/uL (0.0-0.7); EOSINOPHILS % (AUTO) 2.1 %; HGB - HEMOGLOBIN 14.5 g/dL (12.0-16.0); LYMPHOCYTES # (AUTO) 2.3 10^3/uL (1.5-3.5); LYMPHOCYTES % (AUTO) 34.2 %; MEAN CORPUSCULAR HEMOGLOBIN 29.8 pg (27.0-31.0); MEAN CORPUSCULAR VOLUME 87.6 fL (81.0-99.0); MEAN PLATELET VOLUME 7.7 fL (7.9-10.8); MONOCYTES # (AUTO) 0.5 10^3/uL (0.0-1.0); MONOCYTES % (AUTO) 8.3 %; NEUTROPHILS # (AUTO) 3.6 10^3/uL (1.5-6.6); NEUTROPHILS % (AUTO) 54.6 %; PLT - PLATELET COUNT 304 10^3/uL (130-450); RED BLOOD COUNT 4.88 10^6/uL (4.20-5.40); RED CELL DISTRIBUTION WIDTH 13.3 % (12.0-15.0); WHITE BLOOD COUNT 6.6 x10^3/uL (4.8-10.8)
[2018-01-14 20:39] LABS: BILIRUBIN,URINE NEGATIVE (NEGATIVE); GLUCOSE, URINE (UA) NEGATIVE (NEGATIVE); KETONES,URINE (UA) NEGATIVE (NEGATIVE); LEUKOCYTE ESTERASE, URINE NEGATIVE (NEGATIVE); NITRITE,URINE NEGATIVE (NEGATIVE); OCCULT BLOOD,URINE NEGATIVE (NEGATIVE); PROTEIN,URINE NEGATIVE (NEGATIVE); UROBILINOGEN,URINE 0.2 (NORMAL) E.U./dL (NORMAL)
[2018-01-14 20:42] LABS: CLARITY,URINE CLEAR (CLEAR); HCG UR QUAL NEGATIVE
[2018-01-14 20:46] LABS: ALBUMIN/GLOBULIN RATIO 1.3 (1.0-2.2); BILIRUBIN,TOTAL 0.8 mg/dL (0.2-1.0); CALCIUM 9.1 mg/dL (8.5-10.3); CREATININE 0.9 mg/dL (0.4-1.0); TOTAL PROTEIN 7.2 g/dL (6.7-8.2)
[2018-01-14] MEDS ORDERED: MORPHINE 10 MG/ML VIAL IVP STA (21:14)
[2018-01-14 21:38] VITALS: BP 103/61
[2018-01-14] MEDS ORDERED: ONDANSETRON ODT 4 MG Prepack 2 TL STA (21:49)
== END 2018-01-14 21:58 | disposition home or self-care (01) ==
LOC: ED 19:44
DX: R10.12 Left upper quadrant pain (principal); R11.2 Nausea with vomiting, unspecified
CPT/HCPCS: 36415; 80053; 81001; 81003; 81025; 83690; 85025; 87086; 96361; 96374; 96375; 99283